=== PATIENT | female | born 1990 | race African-American/Black ===

== ENCOUNTER 2021-02-18 09:57 | Emergency (ER) | payer OTHER ==
[~2021-02-18] VITALS: Ht 152.4 cm; Wt 59.1 kg
[2021-02-18] MEDS ORDERED: PREN-134 PO (10:08)
[2021-02-18 11:06] LABS: BASOPHILS % (AUTO) 0.5 % (0.0-2.0); HEMATOCRIT 39.1 % (36-46); HEMOGLOBIN 12.6 g/dL (12.0-16.0); LYMPHOCYTES # (AUTO) 0.7 K/uL (1.0-4.8); LYMPHOCYTES % (AUTO) 10.1 % (22.0-44.0); MEAN CORPUSCULAR HEMOGLOBIN 28.1 pg (26.0-34.0); MEAN CORPUSCULAR HGB CONC 32.1 G/dL (31.0-37.0); MEAN CORPUSCULAR VOLUME 88 fL (80-100); MONOCYTES # (AUTO) 0.5 K/uL (0.1-1.0); MONOCYTES % (AUTO) 6.9 % (2.0-9.0); NEUTROPHILS % (AUTO) 81.5 % (40.0-70.0); PLATELET COUNT (AUTO) 248 K/uL (150-450); RED BLOOD CELL COUNT(AUTO) 4.47 MIL/uL (4.00-5.20)
[2021-02-18] MEDS ORDERED: ACETAMINOPHEN 325 MG TABLET PO ONE (11:15)
[2021-02-18 11:20] LABS: ANION GAP 11 mmol/L (8-16); CALCIUM, TOTAL 8.9 mg/dL (8.8-10.5); CARBON DIOXIDE 25 mmol/L (22-29); CHLORIDE 103 mmol/L (98-107); CREATININE 0.65 mg/dL (0.60-1.30); GLOMERULAR FILTR. RATE CALC > 60 mL/min (>60); GLUCOSE,RANDOM 92 mg/dL (70-110); POTASSIUM 3.6 mmol/L (3.5-5.1); SODIUM SERUM 139 mmol/L (136-145); UREA NITROGEN, BLOOD 11 mg/dL (7-18)
[2021-02-18 11:31] LABS: ALANINE AMINOTRANSFERASE 24 U/L (12-78); ALBUMIN 4.2 g/dL (3.4-5.0); ALKALINE PHOSPHATASE 38 U/L (46-116); ASPARTATE AMINOTRANSFERASE 16 U/L (15-37); BILIRUBIN,TOTAL 0.3 mg/dL (0.1-1.0); HCG,QUANTITATIVE 953 mIU/mL (0-6); TOTAL PROTEIN, SERUM 7.8 g/dL (6.4-8.2)
[2021-02-18] MEDS ORDERED: ONDANSETRON HCL 4 MG/2 ML VIAL PO ONE (12:00)
[2021-02-18 12:45] VITALS: BP 100/48
[2021-02-18] MEDS ORDERED: NAPROXEN 250 MG TABLET PO ONE (12:45)
== END 2021-02-18 13:20 | disposition home or self-care (01) ==
LOC: EMS 10:08
DX: O02.1 Missed abortion (principal); Z3A.01 Less than 8 weeks gestation of pregnancy
CPT/HCPCS: 36415; 76801; 76817; 80053; 84702; 85025; 86901; 99284; J2405

== ENCOUNTER 2021-02-19 02:57 | Emergency (ER) | payer OTHER ==
[~2021-02-19] VITALS: Ht 154.9 cm; Wt 59.1 kg
[~2021-02-19 02:57] MED LIST: PREN-134 PO
[2021-02-19] MEDS ORDERED: ONDANSETRON HCL 4 MG/2 ML VIAL IVP ONE (05:30)
[2021-02-19 05:52] LABS: BASOPHILS % (AUTO) 0.4 % (0.0-2.0); EOSINOPHILS % (AUTO) 0.1 % (1.0-6.0); HEMATOCRIT 37.4 % (36-46); HEMOGLOBIN 12.2 g/dL (12.0-16.0); LYMPHOCYTES # (AUTO) 0.9 K/uL (1.0-4.8); LYMPHOCYTES % (AUTO) 8.9 % (22.0-44.0); MEAN CORPUSCULAR HEMOGLOBIN 28.2 pg (26.0-34.0); MEAN CORPUSCULAR HGB CONC 32.6 G/dL (31.0-37.0); MEAN CORPUSCULAR VOLUME 86 fL (80-100); MONOCYTES # (AUTO) 0.8 K/uL (0.1-1.0); MONOCYTES % (AUTO) 8.4 % (2.0-9.0); NEUTROPHILS % (AUTO) 82.2 % (40.0-70.0); PLATELET COUNT (AUTO) 264 K/uL (150-450); RED BLOOD CELL COUNT(AUTO) 4.33 MIL/uL (4.00-5.20); RED CELL DISTRIBUTION WIDTH 14.7 % (11.5-14.5)
[2021-02-19 05:59] LABS: ANION GAP 14 mmol/L (8-16); CALCIUM, TOTAL 9.4 mg/dL (8.8-10.5); CARBON DIOXIDE 24 mmol/L (22-29); CHLORIDE 101 mmol/L (98-107); CREATININE 0.67 mg/dL (0.60-1.30); GLOMERULAR FILTR. RATE CALC > 60 mL/min (>60); GLUCOSE,RANDOM 106 mg/dL (70-110); POTASSIUM 3.3 mmol/L (3.5-5.1); SODIUM SERUM 139 mmol/L (136-145); UREA NITROGEN, BLOOD 12 mg/dL (7-18)
[2021-02-19 06:10] LABS: ALANINE AMINOTRANSFERASE 23 U/L (12-78); ALBUMIN 4.2 g/dL (3.4-5.0); ALKALINE PHOSPHATASE 36 U/L (46-116); ASPARTATE AMINOTRANSFERASE 16 U/L (15-37); BILIRUBIN,TOTAL 0.6 mg/dL (0.1-1.0); HCG,QUANTITATIVE 579 mIU/mL (0-6); TOTAL PROTEIN, SERUM 7.8 g/dL (6.4-8.2)
[2021-02-19] MEDS ORDERED: KETOROLAC TROMETHAMINE 30 MG/ML VIAL IVP ONE (06:30)
[2021-02-19] MEDS ORDERED: SODIUM CHLORIDE 0.9% 1,000 ML IV ONE (06:30)
[2021-02-19 06:40] LABS: COVID AG,FIA SOURCE NASAL SWAB
[2021-02-19 07:25] VITALS: BP 128/93
== END 2021-02-19 07:45 | disposition home or self-care (01) ==
LOC: EMS 02:59
DX: O03.9 Complete or unspecified spontaneous abortion without complication (principal); R11.2 Nausea with vomiting, unspecified; Z20.822 Contact with and (suspected) exposure to COVID-19
CPT/HCPCS: 36415; 71045; 80053; 84484; 84702; 85025; 87426; 93005; 96361; 96374; 96375; 99285; G0480; J1885; J2405